=== PATIENT | male | born 1965 | race Caucasian/White ===

== ENCOUNTER 2016-08-04 11:56 | Emergency (ER) | payer BC ==
[2016-08-04 13:11] VITALS: BP 113/74
--- NOTE | 2016-08-04 15:03 | UC ---
UC General HPI - HPI Summary HPI Summary: Onset of diarrhea on 08/01, going 2 or 3 times both Monday and Monday, with an increase in stools yesterday. Gets sharp pain and cramping before stool passage , but otherwise no pain. NO fever. No nausea or vomiting. Took imodium one tab on 08/02, and 4 tabs of pepto last night. No stools since dry can tender, but went about 10 times from last evening until the early hours. No blood seen. No known infectious contacts. - History of Current Complaint Chief Complaint: UCGeneralIllness Stated Complaint: DIARRHEA Time Seen by Provider: 08/04/16 14:44 Hx Obtained From: Patient Onset/Duration: Gradual Onset, Lasting Days - 4 Timing: Intermittent Episodes Lasting: - minutes Onset Severity: Moderate Current Severity: Mild Associated Signs & Symptoms: Positive: Diarrhea - Allergy/Home Medications Allergies/Adverse Reactions: Allergies Allergy/AdvReac Type Severity Reaction Status Date / Time No Known Allergies Allergy Verified 08/04/16 13:10 PMH/Surg Hx/FS Hx/Imm Hx Previously Healthy: Yes Respiratory History Of: Reports: Asthma - Surgical History Surgical History: None - Family History Known Family History: Positive: Other - NO history of ulcerative colitis. - Social History Occupation: Employed Full-time - [employer]. Alcohol Use: Occasionally Substance Use Type: None Smoking Status (MU): Light Every Day Tobacco Smoker Type: Cigarettes Amount Used/How Often: 1/2 PPD Length of Time of Smoking/Using Tobacco: 28 years Have You Smoked in the Last Year: Yes Household Exposure Type: Cigarettes - Immunization History Most Recent Influenza Vaccination: Current for Review of Systems Constitutional: Fatigue - did not sleep last night due to diarrhea. Skin: Negative Eyes: Negative ENT: Negative Respiratory: Negative Cardiovascular: Negative Gastrointestinal: Abdominal Pain - cramping; currently has no pain, Diarrhea Genitourinary: Negative, Other - has voided x 2 today Motor: Negative Neurovascular: Negative Musculoskeletal: Negative Neurological: Negative Psychological: Negative All Other Systems Reviewed And Are Negative: Yes Physical Exam Triage Information Reviewed: Yes Appearance: Ill-Appearing - looks fatigued and mildly unwell. Vital Signs: Initial Vital Signs Temp 98.9 F 08/04/16 13:07 Pulse 98 08/04/16 13:07 Resp 16 08/04/16 13:07 BP 113/74 08/04/16 13:07 Pulse Ox 98 08/04/16 13:07 Eye Exam: Normal ENT: Positive: Pharynx normal Neck: Positive: Nontender, No Lymphadenopathy Respiratory: Positive: Lungs clear, Normal breath sounds Cardiovascular: Positive: RRR, No Murmur Abdomen Description: Positive: Nontender, No Organomegaly, Soft Bowel Sounds: Positive: Present Musculoskeletal Exam: Normal Neurological Exam: Normal Neurological: Positive: Alert, Muscle Tone Normal Psychological Exam: Normal Skin Exam: Normal Course/Dx - Course Course Of Treatment: rehydration, BRAT diet, imodium prn - Differential Dx - Multi-Symptom Provider Diagnoses: gastroenteritis Discharge - Discharge Plan Condition: Stable Disposition: HOME Patient Education Materials: Nutrition Tips for Relief of Diarrhea (ED), Acute Diarrhea (ED) Forms: *Work Release Additional Instructions: As discussed, you need to increase fluids (toma stephon, broth, juices like apple or cranberry), and begin eating (toast, poached chicken, rice, potatoes, apple sauce). No cream or cheese until diarrhea settles. Take one imodium this afternoon, the one after any loose stool to a maximum of 4 per day. Gradually return to normal diet.
== END 2016-08-04 15:12 | disposition home or self-care (01) ==
LOC: UCCORT 11:56
DX: K52.9 Noninfective gastroenteritis and colitis, unspecified (principal); J45.909 Unspecified asthma, uncomplicated; F17.210 Nicotine dependence, cigarettes, uncomplicated
CPT/HCPCS: 99211; G0463

== ENCOUNTER 2016-08-30 12:43 | Emergency (ER) | payer BC, OTHER ==
[2016-08-30] MEDS ORDERED: Ketorolac INJ* 60 MG/2 ML VIAL IM ONE (13:24)
--- NOTE | 2016-08-30 13:30 | UC ---
Back Pain HPI - HPI Summary HPI Summary: patient was lifting a heavy box headr a pop and sudden pain over the left side of his hip. - History of Current Complaint Chief Complaint: UCBackPain Stated Complaint: BACK PAIN-WC Time Seen by Provider: 08/30/16 13:13 Hx Obtained From: Patient Onset/Duration: Sudden Onset, Lasting Hours Timing: Constant Severity Initially: Severe Severity Currently: Severe Pain Intensity: 7 Pain Scale Used: 0-10 Numeric Back Pain: Is Discrete @ Character: Throbbing, Spasmodic Aggravating: Movement Alleviating: Nothing Associated Signs And Symptoms: Positive: Swelling - Allergies/Home Medications Allergies/Adverse Reactions: Allergies Allergy/AdvReac Type Severity Reaction Status Date / Time No Known Allergies Allergy Verified 08/04/16 13:10 PMH/Surg Hx/FS Hx/Imm Hx Previously Healthy: Yes Respiratory History Of: Reports: Asthma - Surgical History Surgical History: None - Family History Known Family History: Positive: Other - NO history of ulcerative colitis. Negative: Cardiac Disease, Hypertension - Social History Alcohol Use: Occasionally Substance Use Type: None Smoking Status (MU): Light Every Day Tobacco Smoker Type: Cigarettes Amount Used/How Often: 1/2 PPD Length of Time of Smoking/Using Tobacco: 28 years Have You Smoked in the Last Year: Yes Household Exposure Type: Cigarettes - Immunization History Most Recent Influenza Vaccination: Current for Review of Systems Constitutional: Negative Skin: Negative Eyes: Negative ENT: Negative Respiratory: Negative Cardiovascular: Negative Gastrointestinal: Negative Genitourinary: Negative Motor: Negative Neurovascular: Negative Musculoskeletal: Arthralgia, Decreased ROM, Edema - over the left side of lumbar spine, Myalgia Neurological: Negative Psychological: Negative All Other Systems Reviewed And Are Negative: Yes Physical Exam Triage Information Reviewed: Yes Appearance: Well-Appearing, Well-Nourished, Pain Distress Vital Signs: Initial Vital Signs Temp 98.2 F 08/30/16 13:11 Pulse 82 08/30/16 13:11 Resp 16 08/30/16 13:11 BP 103/68 08/30/16 13:11 Pulse Ox 97 08/30/16 13:11 Vital Signs Reviewed: Yes Eye Exam: Normal Eyes: Positive: Conjunctiva Clear ENT Exam: Normal ENT: Positive: Normal ENT inspection, Hearing grossly normal, Pharynx normal, TMs normal Dental Exam: Normal Neck exam: Normal Respiratory Exam: Normal Cardiovascular Exam: Normal Cardiovascular: Positive: RRR, No Murmur, Pulses Normal Abdominal Exam: Normal Abdomen Description: Positive: Nontender, No Organomegaly, Soft Bowel Sounds: Positive: Present Musculoskeletal: Positive: Strength Limited @ - with lifting and walking, no radiating pain, discreet area of swelling over the left lumber musculature, pain along the pelvic bone. lumbar ext limited Neurological Exam: Normal Psychological Exam: Normal Skin Exam: Normal Back Pain Course/Dx - Course Course Of Treatment: hx obtained, exam performed, toradol given and xray obtained no fracture noted, treated for lumbar strain. - Differential Dx/Diagnosis Differential Diagnosis/HQI/PQRI: Herniated Disc, Strain, Sprain Provider Diagnoses: lumbar muscle strain Discharge - Discharge Plan Condition: Stable Disposition: HOME Prescriptions: Cyclobenzaprine TAB* [Flexeril TAB*] 10 mg PO TID PRN #21 tab PRN Reason: Spasms Ibuprofen TAB* [Motrin TAB* 600 MG] 600 mg PO Q6H PRN #30 tab PRN Reason: Pain Patient Education Materials: Low Back Strain (ED), Lower Back Exercises (ED) Referrals: Kalyn Rodriguez PA [Primary Care Provider] - Additional Instructions: You need to rest your back. Use the flexeril and ibuprofen for pain relief. start moving and stretching in pain free Range of motion. Increasing as pain allows. No heavy lifting or bending for the next 48 hours. Then as tolerated. If pain is not improving follow up.
--- NOTE | 2016-08-30 14:09 | RAD ---
Indication: Back pain. 2 views of the lumbar spine demonstrate vertebral bodies to be normal in height. Disc spaces all well-preserved. Angles appear intact. IMPRESSION: No fracture of the lumbar spine is noted.
[2016-08-30 14:26] VITALS: BP 116/83
== END 2016-08-30 14:27 | disposition home or self-care (01) ==
LOC: UCCORT 12:43
DX: S39.012A Strain of muscle, fascia and tendon of lower back, initial encounter (principal); X50.0XXA Overexertion from strenuous movement or load, initial encounter; Y93.9 Activity, unspecified; Y92.9 Unspecified place or not applicable; F17.210 Nicotine dependence, cigarettes, uncomplicated
CPT/HCPCS: 72100; 96372; 99212; G0463; J1885

== ENCOUNTER 2017-08-31 09:49 | Emergency (ER) | payer BC, OTHER ==
[2017-08-31 10:19] VITALS: BP 128/85
--- NOTE | 2017-08-31 10:38 | UC ---
FLU HPI - HPI Summary HPI Summary: yesterday left work sick feverish,cough body, aches, fatigue got worse in the middle of the night today tried to go to work but sx have continued - History of Current Complaint Chief Complaint: UCRespiratory Stated Complaint: COUGH/ACHY/HAMM Time Seen by Provider: 08/31/17 10:17 Hx Obtained From: Patient Onset/Duration: Sudden Onset, Lasting Days - 2 Severity Currently: Moderate Severity Initially: Moderate Pain Intensity: 0 Associated Signs & Symptoms: Positive: Fever, Myalgia, Cough, Nasal Congestion, Headache Related Hx: Smoking, Recent Antipyretics Dose And Time - 4 am - Allergy/Home Medications Allergies/Adverse Reactions: Allergies Allergy/AdvReac Type Severity Reaction Status Date / Time No Known Allergies Allergy Verified 08/04/16 13:10 Home Medications: Home Medications D-Methorphan/PE/Acetaminophen [Daytime Cold Multi-Symp Gelcap] 2 each PO ONCE PRN 08/31/17 [History Confirmed 08/31/17] Dm/Acetaminophen/Doxylamine [Nighttime Cold-Flu Rlf Sftgl] 2 each PO BEDTIME PRN 08/31/17 [History Confirmed 08/31/17] PMH/Surg Hx/FS Hx/Imm Hx Previously Healthy: No Respiratory History: Asthma - Surgical History Surgical History: None - Family History Known Family History: Positive: Cardiac Disease, Other Negative: Hypertension - Social History Occupation: Employed Full-time Lives: With Family Alcohol Use: Occasionally Substance Use Type: None Smoking Status (MU): Heavy Every Day Tobacco Smoker Type: Cigarettes Amount Used/How Often: 1/2 PPD Length of Time of Smoking/Using Tobacco: 28 years Have You Smoked in the Last Year: Yes Household Exposure Type: Cigarettes - Immunization History Most Recent Influenza Vaccination: Current for Review of Systems Constitutional: Fever, Chills, Fatigue Skin: Negative Eyes: Negative ENT: Nasal Discharge Respiratory: Cough Cardiovascular: Negative Gastrointestinal: Negative Genitourinary: Negative Motor: Negative Neurovascular: Negative Musculoskeletal: Arthralgia, Myalgia Neurological: Negative Psychological: Anxious Is Patient Immunocompromised?: No All Other Systems Reviewed And Are Negative: Yes Physical Exam Triage Information Reviewed: Yes Appearance: Well-Nourished, Ill-Appearing - mild, Pain Distress - mild Vital Signs: Initial Vital Signs Temp 99 F 08/31/17 10:14 Pulse 96 08/31/17 10:14 Resp 18 08/31/17 10:14 BP 128/85 08/31/17 10:14 Pulse Ox 95 08/31/17 10:14 Vital Signs Reviewed: Yes Eye Exam: Normal Eyes: Positive: Conjunctiva Clear ENT Exam: Normal ENT: Positive: Normal ENT inspection, Hearing grossly normal, Pharynx normal, Nasal congestion, Nasal drainage, TMs normal, Uvula midline. Negative: Tonsillar swelling, Tonsillar exudate, Trismus, Muffled voice, Hoarse voice, Sinus tenderness Dental Exam: Normal Neck exam: Normal Neck: Positive: Supple, Nontender, No Lymphadenopathy Respiratory Exam: Normal Respiratory: Positive: Chest non-tender, Lungs clear, Normal breath sounds, No respiratory distress, No accessory muscle use Cardiovascular Exam: Normal Cardiovascular: Positive: RRR, No Murmur, Pulses Normal, Brisk Capillary Refill Abdomen Description: Negative: CVA Tenderness (R), CVA Tenderness (L) Musculoskeletal Exam: Normal Musculoskeletal: Positive: Strength Intact, ROM Intact, No Edema Neurological Exam: Normal Neurological: Positive: Alert, Muscle Tone Normal Psychological Exam: Normal Skin Exam: Normal Diagnostics - Laboratory Diagnostic Studies Completed/Ordered: Influenza A/B (-) Flu Course/Dx - Course Course Of Treatment: home rest, increase fluids, use MDI, prednisone, z-max nicotine cesasation information follow with pcp or return as needed - Differential Dx/Diagnosis Provider Diagnoses: Acute bronchitis, nicotine dependent Discharge - Discharge Plan Condition: Stable Disposition: HOME Prescriptions: Azithromycin TAB* [Zithromax TAB (Z-KATERINE) 250 mg #6 tabs] 2 tab PO .TODAY, THEN 1 DAILY #1 katerine predniSONE TAB* [Deltasone TAB*] 20 mg PO DAILY #9 tab Patient Education Materials: How to Stop Smoking (ED), Upper Respiratory Infection (ED) Forms: *Work Release Referrals: Kalyn Rodriguez PA [Primary Care Provider] - 5 Days
== END 2017-08-31 11:12 | disposition home or self-care (01) ==
LOC: UCCORT 09:49
DX: J20.9 Acute bronchitis, unspecified (principal); F17.210 Nicotine dependence, cigarettes, uncomplicated
CPT/HCPCS: 87502; 99212; G0463

== ENCOUNTER 2017-12-20 10:30 | Emergency (ER) | payer BC, OTHER ==
[2017-12-20 10:44] VITALS: BP 118/77
[2017-12-20] MEDS ORDERED: Ketorolac INJ* 60 MG/2 ML VIAL IM ONE (10:55)
--- NOTE | 2017-12-20 11:13 | UC ---
Back Pain HPI - HPI Summary HPI Summary: Pt c/o sudden onset left side back pain after lifting heavy pallet at work and while setting it down heard a "pop" on left, lower lateral side back and sudden onset of back pain. Denies numbness, weakness or loss of bowel or bladder control . - History of Current Complaint Chief Complaint: UCBackPain Stated Complaint: WC-BACK INJURY Time Seen by Provider: 12/20/17 10:47 Hx Obtained From: Patient Onset/Duration: Sudden Onset, Still Present Timing: Constant Severity Initially: Severe Severity Currently: Severe Pain Intensity: 10 Back Pain: Is Discrete @ - left lower, lateral back Character: Dull, Aching Aggravating Factor(s): Movement Alleviating Factor(s): Rest, Position Associated Signs And Symptoms: Positive: Negative Related History: Previous Back Injury - Risk Factors AAA Risk Factors: Smoking TAD Risk Factors: Smoking Cauda Equina Risk Factors: Negative Epidural Abscess Risk Factors: Negative - Allergies/Home Medications Allergies/Adverse Reactions: Allergies Allergy/AdvReac Type Severity Reaction Status Date / Time No Known Allergies Allergy Verified 12/20/17 10:45 Home Medications: Home Medications Ibuprofen TAB* [Motrin TAB* 800 MG] 800 mg TID PRN 12/20/17 [History Confirmed 12/20/17] PMH/Surg Hx/FS Hx/Imm Hx Previously Healthy: Yes - Surgical History Surgical History: None - Family History Known Family History: Positive: Cardiac Disease, Other Negative: Hypertension - Social History Occupation: Employed Full-time Lives: With Family Alcohol Use: Occasionally Substance Use Type: None Smoking Status (MU): Heavy Every Day Tobacco Smoker Type: Cigarettes Amount Used/How Often: 1/2 PPD Length of Time of Smoking/Using Tobacco: 28 years Have You Smoked in the Last Year: Yes Household Exposure Type: Cigarettes - Immunization History Most Recent Influenza Vaccination: Current for Review of Systems Constitutional: Negative Skin: Negative Eyes: Negative ENT: Negative Respiratory: Negative Cardiovascular: Negative Gastrointestinal: Negative Genitourinary: Negative Motor: Decreased ROM - left lateral, lower back, Musculoskeletal: Decreased ROM - left lateral lower back, Myalgia Neurological: Negative Psychological: Negative Is Patient Immunocompromised?: No All Other Systems Reviewed And Are Negative: Yes Physical Exam Triage Information Reviewed: Yes Appearance: Pain Distress Vital Signs: Initial Vital Signs Temp 99.3 F 06/20/18 10:39 Pulse 106 12/20/17 10:39 Resp 16 12/20/17 10:39 BP 118/77 12/20/17 10:39 Pulse Ox 95 12/20/17 10:39 Vital Signs Reviewed: Yes Eye Exam: Normal ENT Exam: Normal Neck exam: Normal Respiratory Exam: Normal Cardiovascular: Positive: Tachycardia Musculoskeletal Exam: Other Musculoskeletal: Positive: ROM Limited @ - left lateral lower back Neurological Exam: Normal Psychological Exam: Normal Skin Exam: Normal Back Pain Course/Dx - Differential Dx/Diagnosis Differential Diagnosis/HQI/PQRI: Herniated Disc, Strain, Sprain Provider Diagnoses: left lower back strain Discharge - Sign-Out/Discharge Documenting (check all that apply): Discharge/Admit/Transfer - Discharge Plan Condition: Stable Disposition: HOME Prescriptions: Cyclobenzaprine TAB* [Flexeril 10 MG TAB*] 10 mg PO TID PRN #21 tab PRN Reason: Spasms Patient Education Materials: Low Back Strain (ED) Forms: *Work Release Referrals: Kalyn Rodriguez PA [Primary Care Provider] - If Needed - Billing Disposition and Condition Condition: STABLE Disposition: Home
== END 2017-12-20 11:28 | disposition home or self-care (01) ==
LOC: UCCORT 10:30
DX: S39.012A Strain of muscle, fascia and tendon of lower back, initial encounter (principal); X50.0XXA Overexertion from strenuous movement or load, initial encounter; Y93.89 Activity, other specified; Y92.69 Other specified industrial and construction area as the place of occurrence of the external cause; Y99.0 Civilian activity done for income or pay; F17.210 Nicotine dependence, cigarettes, uncomplicated
CPT/HCPCS: 96372; 99212; G0463; J1885

== ENCOUNTER 2019-04-25 10:00 | Emergency (ER) | payer OTHER ==
[2019-04-25 10:28] VITALS: BP 119/88
--- NOTE | 2019-04-25 10:51 | UC ---
Back Pain HPI - HPI Summary HPI Summary: Pt presents with c/o sudden onset of left lower back pain that began as he was picking up a heavy box at work. Pt has hx of sciatica on left side and believes he is having another "episode". Pt states that the pain radiates from left side lower back down posterior left leg. Pt denies numbness, tingling, loss of bowel or bladder control. Pt denies hx of bulging discs. - History of Current Complaint Chief Complaint: UCBackPain Stated Complaint: WC-LOWER BACK INJURY Time Seen by Provider: 04/25/19 10:36 Hx Obtained From: Patient Onset/Duration: Sudden Onset, Still Present Timing: Constant Severity Initially: Severe Severity Currently: Moderate Pain Intensity: 8 Back Pain: Is Discrete @ - left low back, Radiates To - posterior left leg Character: Dull, Aching, Throbbing, Burning Aggravating Factor(s): Movement Alleviating Factor(s): Rest, Position Associated Signs And Symptoms: Positive: Weakness Related History: Similar Episode Dx As - sciatica - Risk Factors AAA Risk Factors: Negative Cauda Equina Risk Factors: Negative Epidural Abscess Risk Factors: Negative - Allergies/Home Medications Allergies/Adverse Reactions: Allergies Allergy/AdvReac Type Severity Reaction Status Date / Time No Known Allergies Allergy Verified 04/25/19 10:18 PMH/Surg Hx/FS Hx/Imm Hx Previously Healthy: Yes - Surgical History Surgical History: None - Family History Known Family History: Positive: Cardiac Disease, Other Negative: Hypertension - Social History Occupation: Employed Full-time Lives: With Family Alcohol Use: Occasionally Substance Use Type: None Smoking Status (MU): Heavy Every Day Tobacco Smoker Type: Cigarettes Amount Used/How Often: 1/2 PPD Length of Time of Smoking/Using Tobacco: 28 years Have You Smoked in the Last Year: Yes Household Exposure Type: Cigarettes - Immunization History Most Recent Influenza Vaccination: Current for Review of Systems All Other Systems Reviewed And Are Negative: Yes Constitutional: Positive: Negative Skin: Positive: Negative Eyes: Positive: Negative ENT: Positive: Negative Respiratory: Positive: Negative Cardiovascular: Positive: Negative Gastrointestinal: Positive: Negative Genitourinary: Positive: Negative Motor: Positive: Decreased ROM - left leg pain with ROM form hip Neurovascular: Positive: Negative Musculoskeletal: Positive: Arthralgia, Myalgia Neurological: Positive: Weakness - c/o ad with left leg movement Psychological: Positive: Negative Is Patient Immunocompromised?: No Physical Exam Triage Information Reviewed: Yes Appearance: Pain Distress Vital Signs: Initial Vital Signs Temp 97.8 F 04/25/19 10:20 Pulse 98 04/25/19 10:20 Resp 20 04/25/19 10:20 BP 119/88 04/25/19 10:20 Pulse Ox 98 04/25/19 10:20 Vital Signs Reviewed: Yes Eye Exam: Normal ENT Exam: Normal ENT: Positive: Hearing grossly normal Neck exam: Normal Respiratory: Positive: No respiratory distress Musculoskeletal: Positive: Strength Limited @ - left leg due to pain, tenderness left lower back at Sciatic area, ROM Limited @ - left leg due to pain Neurological Exam: Normal Psychological Exam: Normal Skin Exam: Normal Back Pain Course/Dx - Differential Dx/Diagnosis Differential Diagnosis/HQI/PQRI: Herniated Disc, Strain, Sprain Provider Diagnosis: Left-sided low back pain with sciatica Discharge ED - Sign-Out/Discharge Documenting (check all that apply): Patient Departure All imaging exams completed and their final reports reviewed: No Studies - Discharge Plan Condition: Stable Disposition: HOME Prescriptions: Cyclobenzaprine TAB* [Flexeril 10 MG TAB*] 10 mg PO TID PRN #21 tab PRN Reason: Spasms Ibuprofen TAB* [Motrin TAB* 800 MG] 800 mg PO Q6H PRN #21 tab PRN Reason: Pain - Mild Patient Education Materials: Sciatica (ED), Low Back Strain (ED), Lower Back Exercises (ED) Forms: *Work Release Referrals: Kalyn Rodriguez PA [Primary Care Provider] - If Needed - Billing Disposition and Condition Condition: STABLE Disposition: Home
== END 2019-04-25 11:01 | disposition home or self-care (01) ==
LOC: UCCORT 10:00
DX: M54.42 Lumbago with sciatica, left side (principal); F17.210 Nicotine dependence, cigarettes, uncomplicated
CPT/HCPCS: 99212; G0463

== ENCOUNTER 2019-05-06 09:30 | Emergency (ER) | payer OTHER ==
[2019-05-06 10:17] VITALS: BP 111/89
--- NOTE | 2019-05-06 10:43 | UC ---
Back Pain HPI - HPI Summary HPI Summary: 54 yo assessed on 04/25 with diagnosis made of low back pain, sciatica. At that time, he was moving a bulkly box to a pallette, with sudden onset of pain, and he fell to his buttocks. Was off work for 2 days, then returned to his normal work without restrictions. He has been using ibuprofen and flexeril as needed, last dose last night. Past hx of sciatic pain which has always been attributed to work injury. Pain does not increase with a cough or a sneeze. He has done chiropractic treatment in the past, and occasional PT - History of Current Complaint Chief Complaint: UCBackPain Stated Complaint: WC RECHECK LOWER BACK/LEFT HIP/LEG PAIN Time Seen by Provider: 05/06/19 10:38 Hx Obtained From: Patient Onset/Duration: Sudden Onset, Lasting Days - onset 04/25, Worse Since - increased pain last evening into today without a new injury Timing: Intermittent, Lasting Seconds Severity Initially: Moderate Severity Currently: Moderate Pain Intensity: 8 Back Pain: Is Discrete @ - left low back, posterior left leg. Character: Aching, Spasmodic Aggravating Factor(s): Movement, Lifting, Walking Alleviating Factor(s): Rest, Position Associated Signs And Symptoms: Positive: Numbness, Tingling. Negative: Weakness , Abdominal Pain, Bladder Incontinence, Bowel Incontinence - Risk Factors AAA Risk Factors: Negative TAD Risk Factors: Negative Cauda Equina Risk Factors: Negative Epidural Abscess Risk Factors: Negative - Allergies/Home Medications Allergies/Adverse Reactions: Allergies Allergy/AdvReac Type Severity Reaction Status Date / Time No Known Allergies Allergy Verified 05/06/19 10:12 Home Medications: Home Medications Dm/Pseudoephed/Acetaminophen [Day-Time Cold-Flu Softgel] 1 tab PO ONCE 05/06/19 [History Confirmed 05/06/19] PMH/Surg Hx/FS Hx/Imm Hx Previously Healthy: Yes - Surgical History Surgical History: None - Family History Known Family History: Positive: Cardiac Disease, Other Negative: Hypertension - Social History Occupation: Employed Full-time Lives: With Family Alcohol Use: Occasionally Substance Use Type: None Smoking Status (MU): Heavy Every Day Tobacco Smoker Type: Cigarettes Amount Used/How Often: 1/2 PPD Length of Time of Smoking/Using Tobacco: 28 years Have You Smoked in the Last Year: Yes Household Exposure Type: Cigarettes - Immunization History Most Recent Influenza Vaccination: Current for Review of Systems All Other Systems Reviewed And Are Negative: Yes Constitutional: Positive: Fatigue Skin: Positive: Negative Eyes: Positive: Negative ENT: Positive: Negative Respiratory: Positive: Negative Cardiovascular: Positive: Negative Gastrointestinal: Positive: Negative Genitourinary: Positive: Negative Motor: Positive: Decreased ROM Neurovascular: Positive: Decreased Sensation Musculoskeletal: Positive: Negative Neurological: Positive: Negative Psychological: Positive: Negative Is Patient Immunocompromised?: No Physical Exam Triage Information Reviewed: Yes Appearance: Well-Appearing, Pain Distress - mild to moderate., Thin Vital Signs: Initial Vital Signs Temp 98.8 F 05/06/19 10:13 Pulse 105 05/06/19 10:13 Resp 14 05/06/19 10:13 BP 111/89 05/06/19 10:13 Pulse Ox 98 05/06/19 10:13 Eye Exam: Normal Respiratory: Positive: Lungs clear, Normal breath sounds Cardiovascular: Positive: RRR Abdomen Description: Positive: Nontender Musculoskeletal: Positive: Strength Intact - normal heel and toe walking, normal resisted plantar and dorsi-flexion., ROM Limited @ - lumbar spine with pain with flexion greater than 50 degrees, lateral bending to the left. Neurological Exam: Other - DTR's LE are 2+, toes downgoing. SLR to 80 degrees bilaterally, limited by hamstrings. Neurological: Positive: Alert, Muscle Tone Normal Psychological Exam: Normal Skin Exam: Normal Back Pain Course/Dx - Course Course Of Treatment: rest, continue ibuprofen and flexeril for pain. Refer to PT for evaluation. - Differential Dx/Diagnosis Differential Diagnosis/HQI/PQRI: Herniated Disc, Strain, Sprain, Other - left sciatica, piriformis syndrome Provider Diagnosis: Left-sided low back pain with sciatica Discharge ED - Sign-Out/Discharge Documenting (check all that apply): Patient Departure All imaging exams completed and their final reports reviewed: No Studies - Discharge Plan Condition: Stable Disposition: HOME Forms: *Work Release Referrals: Kalyn Rodriguez PA [Primary Care Provider] - Additional Instructions: Continue ibuprofen and flexeril for control of pain. You have a referral for physical therapy which should help to prevent recurrences of low back pain. - Billing Disposition and Condition Condition: STABLE Disposition: Home
== END 2019-05-06 11:13 | disposition home or self-care (01) ==
LOC: UCCORT 09:30
DX: M54.42 Lumbago with sciatica, left side (principal); F17.210 Nicotine dependence, cigarettes, uncomplicated
CPT/HCPCS: 99211; G0463

== ENCOUNTER 2019-05-15 09:39 | Emergency (ER) | payer OTHER ==
[2019-05-15 10:12] VITALS: BP 116/78
[2019-05-15] MEDS ORDERED: Naproxen TAB* 250 MG PO ONE (10:25)
--- NOTE | 2019-05-15 10:25 | UC ---
Back Pain HPI - HPI Summary HPI Summary: 54 year old male with PMh + for chronic lower back pain, followed in the past by DR. Jimenez, but no recent visit. Prior back injury , diagnosed with Sciatica, had injury at work which inflammed condition around 04/25. Since has had pain in lower back and lower left leg. Has been treating with flexeril and 800mg motrin at night as well as doing prior PT exercises. Denies bowel/ bladder dysfunction. Left leg "gave out": on him several weeks ago, no weakness since. Sensation intact. Pain is a tingling at minimal, and at worst feeling like a burning/ sharp stabbing sensation, electrical in nature, or like a "hot poker". Very severe. no calf pain, no increased/ decrease with walking. - History of Current Complaint Chief Complaint: UCLowerExtremity Stated Complaint: LEFT LEG PAIN WC Time Seen by Provider: 05/15/19 10:14 Hx Obtained From: Patient Onset/Duration: Sudden Onset, Lasting Weeks, Worse Since - this AM Timing: Intermittent Severity Initially: Mild Severity Currently: Severe Pain Intensity: 9 Pain Scale Used: 0-10 Numeric Back Pain: Is Discrete @ - left left below knee to foot Alleviating Factor(s): Rest, OTC Meds Associated Signs And Symptoms: Positive: Negative, Tingling. Negative: Swelling , Redness, Bruising, Fever, Weakness, Numbness, Flank Pain, Bladder Incontinence , Bowel Incontinence, Weight Loss, Pain with Weight Bearing - Allergies/Home Medications Allergies/Adverse Reactions: Allergies Allergy/AdvReac Type Severity Reaction Status Date / Time No Known Allergies Allergy Verified 05/15/19 10:05 Home Medications: Home Medications Albuterol HFA INHALER* [Ventolin HFA Inhaler*] 2 puff INH Q6H PRN 05/15/19 [ History Confirmed 05/15/19] diphenhydrAMINE HCl [Benadryl Allergy 25 MG CAP] 25 mg PO DAILY 05/15/19 [ History Confirmed 05/15/19] PMH/Surg Hx/FS Hx/Imm Hx Previously Healthy: Yes - allergies, chronic back pain - Surgical History Surgical History: None - Family History Known Family History: Positive: Cardiac Disease, Other Negative: Hypertension - Social History Occupation: Employed Full-time Alcohol Use: Occasionally Substance Use Type: None Smoking Status (MU): Heavy Every Day Tobacco Smoker Type: Cigarettes Amount Used/How Often: 1/2 PPD Length of Time of Smoking/Using Tobacco: 30 years Have You Smoked in the Last Year: Yes Household Exposure Type: Cigarettes - Immunization History Most Recent Influenza Vaccination: Current for Review of Systems All Other Systems Reviewed And Are Negative: Yes Constitutional: Negative: Fever, Chills, Fatigue Skin: Negative: Rash, Bruising Gastrointestinal: Negative: Abdominal Pain Musculoskeletal: Positive: Arthralgia, Decreased ROM, Myalgia Psychological: Positive: Negative Is Patient Immunocompromised?: No Physical Exam Triage Information Reviewed: Yes Appearance: Well-Appearing, Well-Nourished, Pain Distress - moderate with movement Vital Signs: Initial Vital Signs Temp 99 F 05/15/19 10:08 Pulse 97 05/15/19 10:08 Resp 20 05/15/19 10:08 BP 116/78 05/15/19 10:08 Pulse Ox 98 05/15/19 10:08 Vital Signs Reviewed: Yes Eyes: Positive: Conjunctiva Clear ENT: Positive: Hearing grossly normal Respiratory: Positive: Chest non-tender Musculoskeletal: Positive: Strength Intact - knee, ankle b/l, No Edema, Other: - PT pulses 1+ b/l Neurological: Positive: Other: - patellar reflex decreased L side 1+/ right 2+. neg homans b/l, + DF/PF = b/l, knee flexion/ extension against resisetence = b/l, No TTP over entire spine, paraspinal. Psychological Exam: Normal Skin Exam: Normal Skin: Negative: Rashes, Breakdown, Significant Lesion(s) Back Pain Course/Dx - Course Course Of Treatment: radiograph: advanced OA, lumbar spine - Work note given - Increase rest - Naproxen every 12 hours to decreased inflammation/ swelling, decrease pain for next 5 days, than as needed for pain - Flexeril as needed at night to muscle spasms - Make appointment to follow up with DR. Jimenez due to neuropathy, lower back pain - REturn or go to ER with increased symptoms, loss of bowel/ bladder function, decreased strength - Differential Dx/Diagnosis Provider Diagnosis: Neuropathy, lower extremity Discharge ED - Sign-Out/Discharge Documenting (check all that apply): Patient Departure All imaging exams completed and their final reports reviewed: Yes - Discharge Plan Condition: Fair Disposition: HOME Prescriptions: Cyclobenzaprine TAB* [Flexeril 10 MG TAB*] 10 mg PO TID PRN #21 tab PRN Reason: Spasms Naproxen [Naproxen 500 mg tab] 500 mg PO BID PRN #60 tablet PRN Reason: Pain - Moderate Patient Education Materials: Peripheral Neuropathy (ED) Referrals: Kalyn Rodriguez PA [Primary Care Provider] - Ryan Jimenez MD [Medical Doctor] - Additional Instructions: - Work note given - Increase rest - Naproxen every 12 hours to decreased inflammation/ swelling, decrease pain for next 5 days, than as needed for pain - Flexeril as needed at night to muscle spasms - Make appointment to follow up with DR. Jimenez due to neuropathy, lower back pain - REturn or go to ER with increased symptoms, loss of bowel/ bladder function, decreased strength X-ray report- please take to DR. Jimenez- Counter Hand: Geovany Schaeffer Daniel ([id number]) Registered Massage Therapist: CHANTE ( NUANCE) Report Date: 05/15/2019 10:25:00 Report Status: Final ====== Start of Report Content Patient Name: NIYAH CELAYA Medical Record#: [id number] Ordering Physician: Stephanie SWEENEY Acct.#: [id number] : Age: 54 Sex: M [facility]: [facility] Exam Date: 05/15/19 1025 ADM Status: REG ER Order Information: SP LUMBARSACRAL 4+ VWS Accession Number: [id number] CPT: 12611 HISTORY: lower back pain, nerve pain l4-s1 COMPARISONS: August 10, 2016 VIEWS: 5 , Frontal, lateral, coned-down lateral sacral, and bilateral oblique views of the lumbar spine. FINDINGS: ALIGNMENT: There is mild dextroscoliotic curvature of the spine. VERTEBRAL BODIES: There is multilevel anterolateral marginal osteophyte formation. JOINTS: There is facet osteoarthritis most advanced at L4-L5 and L5-S1. INTERVERTEBRAL DISCS: There is diffuse loss of intervertebral disc height. SOFT TISSUE: Unremarkable. OTHER: There is osteoarthritis of the hips and SI joints. There has been progression compared to August 10, 2016. IMPRESSION: DEGENERATIVE DISC DISEASE AND OSTEOARTHRITIS MOST ADVANCED ALONG THE LOWER LUMBAR SPINE. <Electronically signed by Geovany Schaeffer MD in [place]> 05/15/19 1101 Dictated By: Geovany Schaeffer MD Dictated Date/Time: 05/15/191099 Transcribed Date/Time: 05/15/191099 Copy to: CC:Kalyn SWEENEY; Stephanie SWEENEY; Eliot Lockhart MD Imaging - [facility] [place] Imaging - [facility] [address] [place] [id number] [address] [address] ph ([phone]) ph ([phone]) ph ([phone]) ===== End of Report Content - Billing Disposition and Condition Condition: FAIR Disposition: Home
== END 2019-05-15 11:30 | disposition home or self-care (01) ==
LOC: UCCORT 09:39
DX: G62.9 Polyneuropathy, unspecified (principal); M54.5 Low back pain; G89.29 Other chronic pain; F17.210 Nicotine dependence, cigarettes, uncomplicated
CPT/HCPCS: 72110; 99212; A9270-GY; G0463